=== PATIENT | female | born 1980 | race Caucasian/White ===

== ENCOUNTER 2018-05-24 06:47 | Emergency (ER) | payer BC, SELFPAY ==
[2018-05-24 06:56] VITALS: BP 142/63; PULSE 97; RESP 15; TEMP 36.3; O2SAT 98; BMI 32.5
--- NOTE | 2018-05-24 07:11 | ED.ABDPAIN ---
HPI - Abdominal Pain General Chief Complaint: Abdominal Pain Stated Complaint: THINK SHE HAS A STOMACH VIRUS Time Seen by Provider: 05/24/18 07:05 Source: patient Mode of arrival: ambulatory Limitations: no limitations History of Present Illness HPI narrative: 37-year-old female came in this morning by private vehicle for evaluation of nausea and vomiting. Patient states that she had nausea and vomiting that started approximately 2 weeks ago. She states that the vomiting improved but still has had vague abdominal pain and nausea for the past 2 weeks. She states that the vomiting then returned over the past 24 hr. States that her kids have diarrhea. She does not have any diarrhea. No urinary symptoms. No prior abdominal surgeries. No specific abdominal pain. States that she does not feel very well. Has had decreased oral intake over the past 2 weeks. No blood in the vomit. Related Data Previous Rx's Medication Instructions Recorded ondansetron 4 mg PO QID PRN #14 tab 05/24/18 Allergies Allergy/AdvReac Type Severity Reaction Status Date / Time No Known Drug Allergies Allergy Verified 05/24/18 06:56 Review of Systems Constitutional Denies chills, Reports fatigue and Denies fever(s) ENT Ears, Nose, Mouth, and Throat: Denies vertigo and Denies dizziness Cardiovascular Denies chest pain, Denies palpitations and Denies dyspnea Respiratory Denies cough and Denies dyspnea Gastrointestinal Gastrointestinal: Denies change in stool character, Denies constipation, Denies diarrhea, Reports nausea and Reports vomiting Genitourinary Denies dysuria and Denies flank pain Musculoskeletal Denies myalgias and Denies arthralgias Integumentary/Breasts Denies lesions and Denies rash Neurologic Denies vertigo and Denies dizziness Endocrine Reports fatigue and Denies palpitations Hematologic/Lymphatic Denies easy bleeding and Denies easy bruising Exam Initial Vital Signs Initial Vital Signs: Vital Signs Temperature 97.3 F L 05/24/18 06:56 Pulse Rate 97 H 05/24/18 06:56 Respiratory Rate 15 05/24/18 06:56 Blood Pressure 142/63 H 05/24/18 06:56 Pulse Oximetry 98 05/24/18 06:56 Const General: cooperative, healthy appearing, comfortable, well developed, well groomed and No acute distress Orientation: alert, awake and oriented x3 HENMT Head: normal to inspection and normocephalic Resp Effort & Inspection: normal respiratory effort Auscultation: clear to auscultation bilaterally Cardio Rate: regular rate Rhythm: regular rhythm Heart Sounds: no murmurs Pulses: radial pulses present GI Inspection: non-distended Palpation: soft, No firm, No guarding and No tender Skin Lesions: no lesions Rashes: no rashes Neuro General: alert, awake and oriented x3 Cognition: normal cognition Speech: speech normal Motor: muscle tone normal throughout Sensory Exam: no sensory deficits noted Extrem General: normal to inspection and capillary refill normal Psych Appearance: grossly normal and well kempt Course Orders Ordered: ED Orders 05/24/18 06:55 Urine Microscopic Stat Discontinued Medications Sodium Chloride (Normal Saline 0.9%) 1,000 mls @ 1,000 mls/hr IV BOLUS ONE Stop: 05/24/18 08:25 Last Infusion: 05/24/18 09:31 Dose: 0 mls/hr Admin: 05/24/18 08:17 Dose: 1,000 mls/hr Ondansetron HCl (Zofran) 4 mg IV NOW ONE Stop: 05/24/18 07:27 Last Admin: 05/24/18 08:17 Dose: 4 mg Vital Signs - 8 hr 05/24/18 06:56 05/24/18 08:58 Temperature 97.3 F L Pulse Rate 97 H 78 Respiratory Rate 15 14 Blood Pressure 142/63 H Blood Pressure [Right Arm] 120/76 Pulse Oximetry 98 100 MDM - Abdominal Pain Lab Data Attestation: I reviewed the patient's lab results. Lab Results 05/24/18 Range/Units 06:55 Urine RBC None seen (0-5/HPF) Urine WBC None seen (0-5/HPF) Ur Squamous Epith Cells 0-1 /hpf Urine Bacteria None seen (None) Ur Culture Indicated? Cult not indicated Micro UA Comment Not Reportable Point of care testing: Point of Care Testing Test Results Negative Urine Dip Bedside Urine Glucose Negative Bedside Urine Bilirubin - Negative Bedside Urine Ketone - Negative Urine Specific [place] 1.015 Bedside Urine Occult Blood +/- Bedside Urine pH 8.0 Bedside Urine Protein +/- 15 Bedside Urine Urobilinogen - Negative Bedside Urine Nitrite - Negative Bedside Urine Leukocytes - Negative Esterase MDM Narrative Medical decision making narrative: Patient was given fluids and Zofran here in the emergency department was able to tolerate fluids afterwards. She states she felt much better. Will hold on any radiologic studies for now. She was given return precautions. Will send home with nausea medication. She expressed understanding and agreement with plan Discharge Plan Departure Patient Disposition: Home, Self-Care Clinical Impression: Nausea & vomiting Instructions: Nausea and Vomiting-Adult Activity Restrictions/Additional Instructions: Take the medication as directed. Make sure your increasing your fluid intake. Return to the emergency department for any new or worsening symptoms. Call your primary care doctor for a follow-up. Prescriptions: New ondansetron 4 mg tablet,disintegrating 4 mg PO QID PRN (Reason: nausea and vomiting) Qty: 14 RF: 0
[2018-05-24] MEDS: ONDANSETRON 4 MG/2 ML INJ IV (08:17)
[2018-05-24] MEDS: SODIUM CHLORIDE 0.9% 1,000 ML 1000 ML IV (08:17)
[2018-05-24 08:58] VITALS: BP 120/76; PULSE 78; RESP 14; O2SAT 100
[2018-05-24 09:34] LABS: Bacteria Urine None Seen; WBC Urine None Seen (0-5/HPF)
[2018-05-24 09:45] LABS: Culture Indicated Urine Cult Not Indicated; RBC Urine None Seen (0-5/HPF); Squamous Epithelial Cell Urine 0-1 /HPF
[2018-05-24 10:08] VITALS: BP 127/89; PULSE 78; RESP 16; O2SAT 100
== END 2018-05-24 10:15 | disposition home or self-care (01) ==
PROVIDERS: Emergency Provider Emergency Medicine
DX: R11.2 Nausea with vomiting, unspecified (principal)
CPT/HCPCS: 81003; 81015; 81025; 96361; 96374; 99283; 99284; J2405